=== PATIENT | female | born 1970 ===

== ENCOUNTER 2024-12-29 09:03 | Day surgery (SDC) | payer OTHER ==
[~2024-12-29 09:03] MED LIST: Sodium Chloride 0.9% 10 ML Syringe FLUSH PRN; Sodium Chloride 0.9% 2.5 ML Syringe FLUSH PRN; Sodium Chloride 0.9% 20 ML SDV IV PRN
[2024-12-29] MEDS ORDERED: Propofol 200 MG/20 ML SDV ONE (09:16)
[2024-12-29] MEDS ORDERED: Lidocaine 2% 5 ML SDV ONE (09:16)
[2024-12-29] MEDS: Lactated Ringers 1,000 ML IV SCH (09:44)
== END 2024-12-29 11:50 | disposition home or self-care (01) ==
LOC: MW.SDS 09:03
PROVIDERS: ATTEND Surgery
DX: K57.30 Diverticulosis of large intestine without perforation or abscess without bleeding (principal); K60.30 Anal fistula, unspecified; Z79.899 Other long term (current) drug therapy; Z86.0100 Personal history of colon polyps, unspecified
CPT/HCPCS: 45378; J2003; J2704; J7120; 00811